=== PATIENT | female | born 1965 | race Caucasian/White ===

== ENCOUNTER 2017-06-14 11:09 | Day surgery (SDC) | payer OTHER ==
[~2017-06-14] VITALS: Ht 160 cm; Wt 87.9 kg
[2017-06-14 11:52] VITALS: Ht 160 cm; Wt 87.9 kg
[2017-06-14] MEDS ORDERED: STOMACH MED PO (12:13)
[2017-06-14] MEDS ORDERED: HTN MED PO (12:13)
[2017-06-14] MEDS ORDERED: [UNRECOGNIZED DRUG - CODE] PO (12:18)
[2017-06-14] MEDS ORDERED: ESCI20TA38 PO (12:18)
[2017-06-14 12:20] VITALS: BP 135/73; PULSE 76; RESP 20
[2017-06-14] MEDS ORDERED: MULTIVITAMIN PO (12:25)
[2017-06-14] MEDS ORDERED: TRIMETHOPRIM PO (12:25)
[2017-06-14] MEDS ORDERED: BUPR300T36 PO (12:25)
[2017-06-14] MEDS ORDERED: SULFAMETHOXAZOLE PO (12:25)
[2017-06-14] MEDS ORDERED: HYDR-3498 PO (12:25)
[2017-06-14] MEDS ORDERED: MELO-216 PO (12:25)
[2017-06-14] MEDS ORDERED: BENA10TA48 PO (12:25)
[2017-06-14] MEDS ORDERED: VIT D PO (12:25)
[2017-06-14] MEDS ORDERED: ARIP5TAB7 PO (12:25)
[2017-06-14] MEDS ORDERED: AMLO-145 PO (12:25)
[2017-06-14] MEDS ORDERED: FERR325T5 PO (12:25)
[2017-06-14] MEDS ORDERED: PANT40TA4 PO (12:25)
[2017-06-14] MEDS ORDERED: BISA-57 PO (12:25)
[2017-06-14] MEDS ORDERED: MIDAZOLAM 1 MG/ML 2 ML INJ ONE ×2 (13:29→13:33)
[2017-06-14] MEDS ORDERED: FENTAnyl 50 MCG/ML VIAL ONE (13:30)
--- NOTE | 2017-06-14 13:32 | OPPN ---
Date/Time of Note Date/Time of Note DATE: 06/14/17 TIME: 13:30 Operative Report Preoperative Diagnosis Family history of colon CA Family history of colon polyps Postoperative Diagnosis Scattered diverticula throughout the colon Prep in the right colon Operation/Procedure Performed Colonoscopy diagnostic Estimated blood loss: none Transfusion Required: no Specimen: none Grafts/Implants: none Complications: no LISETH MILLS MD Jun 14, 2017 13:32
[2017-06-14 13:50] VITALS: BP 131/72; RESP 18
--- NOTE | 2017-06-14 21:33 | GILP ---
DATE OF PROCEDURE: 06/14/2017 PREOPERATIVE DIAGNOSIS: Family history of colon cancer and the patient had history of colon polyps. PROCEDURE PERFORMED: Colonoscopy up to cecum. POSTOPERATIVE DIAGNOSIS: Poor prep in the right colon. Few scattered diverticula throughout the colon. DESCRIPTION OF PROCEDURE: The patient was put in left lateral decubitus. After obtaining informed consent, was sedated with 3 mg IV Versed and 75 mcg of fentanyl. Very carefully, I advanced an Olympus video colonoscope all the way to the cecum. The rectum, sigmoid colon, descending colon, few diverticula noted. Transverse colon normal. Ascending colon and cecum very poor prep. Lavage continuously and almost 90 percent of this area was examined thoroughly. Demonstrated no polyps but few diverticula, however, it was very dark fluid sometime prevented good visualization. Upon removal of scope, patient had no complications. FINAL IMPRESSION: Somewhat poor prep in the right colon. Transverse colon, descending colon, sigmoid colon unremarkable except for few diverticula. Rectum normal including retroflexion. About 10 percent of the ascending colon and cecum could not be examined properly in spite of all the lavage. PLAN: Will be to follow the patient. Consider followup as outpatient. Repeat colonoscopy in 3 years. Dictated By: Napoleon Kennedy MD /shona/derrick /Document#: [id number] ; Dr. Florentino Edwards
== END 2017-06-14 18:14 | disposition home or self-care (01) ==
LOC: GIL 11:09
PROVIDERS: ATTEND Internal Medicine
DX: Z86.010 Personal history of colon polyps (principal); K57.90 Diverticulosis of intestine, part unspecified, without perforation or abscess without bleeding
CPT/HCPCS: 45378; J2250; J3010; Z7610